=== PATIENT | male | born 1955 | race Native Hawaiian/Other Pacific Islander ===

== ENCOUNTER 2019-02-03 09:10 | Outpatient (CLI) | payer BC ==
[2019-02-03 09:50] LABS: POTASSIUM 4.2 mmol/L (3.6-5.2)
[2019-02-03 10:02] LABS: PLATELET COUNT 295 K/uL (142-355)
== END 2019-02-03 19:32 | disposition home or self-care (01) ==
LOC: LABW 09:10
PROVIDERS: Podiatrist
DX: G90.09 Other idiopathic peripheral autonomic neuropathy (principal)
CPT/HCPCS: 36415; 80053; 84550; 85027; 85651; 86140